=== PATIENT | female | born 1955 | race Caucasian/White ===

== ENCOUNTER 2019-01-01 13:07 | Inpatient (IN) | payer OTHER ==
[~2019-01-01] VITALS: Ht 157.5 cm; Wt 65.3 kg
[2019-01-01] MEDS ORDERED: HORIZANT600 MG PO (14:39)
[2019-01-01] MEDS ORDERED: NEXIUM 24HR20 M1 PO (14:39)
[2019-01-01] MEDS ORDERED: CELEXA40 MG PO (14:39)
[2019-01-01] MEDS ORDERED: EXELON1 EAC2 TD (14:40)
[2019-01-01] MEDS ORDERED: CLONAZEPAM0.5 MG PO (14:40)
[2019-01-01] MEDS ORDERED: LIPITOR20 MG PO (14:41)
[2019-01-01] MEDS ORDERED: RESTORIL30 M1 PO (14:41)
[2019-01-01] MEDS ORDERED: PROBIOTIC 15 B1 EACH PO (14:41)
== END 2019-01-11 10:47 | disposition home or self-care (01) | DRG 331 ==
LOC: O/R 01-02 09:15 → SURH 01-08 05:05
PROVIDERS: ADMIT Colon & Rectal Surgery
PROC: 0DJD8ZZ Inspection of Lower Intestinal Tract, Via Natural or Artificial Opening Endoscopic (ICD-10-PCS; 2019-01-08)
PROC: 0DTN4ZZ Resection of Sigmoid Colon, Percutaneous Endoscopic Approach (ICD-10-PCS; principal; 2019-01-08 07:00)
DX: K57.32 Diverticulitis of large intestine without perforation or abscess without bleeding (principal)

== ENCOUNTER 2020-01-28 06:28 | Day surgery (SDC) | payer OTHER ==
[~2020-01-28 06:28] MED LIST: CELEXA40 MG PO; CLONAZEPAM0.5 MG PO; EXELON1 EAC2 TD; HORIZANT600 MG PO; LIPITOR20 MG PO; NEXIUM 24HR20 M1 PO; PROBIOTIC 15 B1 EACH PO; RESTORIL30 M1 PO
== END 2020-01-28 10:40 | disposition home or self-care (01) ==
LOC: AMB-ENDOS 06:28
PROVIDERS: ATTEND Colon & Rectal Surgery
DX: D12.4 Benign neoplasm of descending colon (principal); Z12.11 Encounter for screening for malignant neoplasm of colon; Z20.828 Contact with and (suspected) exposure to other viral communicable diseases

== ENCOUNTER 2023-03-21 08:00 | Outpatient (CLI) | payer OTHER | END 2023-03-21 08:05 | disposition home or self-care (01) | LOC: LAB 08:00 → ADM 13:00 → EDSTATUS 03-28 13:00 → AMB-ENDOS 03-28 13:00 | PROVIDERS: ATTEND Colon & Rectal Surgery | DX: K82.1 Hydrops of gallbladder (principal); K62.5 Hemorrhage of anus and rectum; Z12.11 Encounter for screening for malignant neoplasm of colon; Z12.12 Encounter for screening for malignant neoplasm of rectum ==